=== PATIENT | male | born 2000 | race Caucasian/White ===

== ENCOUNTER 2020-02-21 10:18 | Emergency (ER) | payer BC, SELFPAY ==
[2020-02-21 10:34] VITALS: BP 138/66; PULSE 82; RESP 20; TEMP 37.4; O2SAT 100
--- NOTE | 2020-02-21 10:43 | ED.SKABFB ---
HPI - Skin/Abscess/Foreign Bdy General Chief complaint: Skin/Abscess/Foreign Body Stated complaint: bee sting Time Seen by Provider: 02/21/20 10:44 Source: patient and RN notes reviewed Mode of arrival: ambulatory Limitations: no limitations History of Present Illness HPI narrative: 19-year-old male presents with concern for insect stings. Reports he got stung by a bee on his right upper arm and left upper arm on Tuesday. Reports on Tuesday he took Benadryl 3 times, and has been intermittently using ice. He denies any fever, malaise. Denies any swollen lips, swollen tongue, trouble breathing, trouble swallowing complaint: insect bite/sting Related Data Allergies Allergy/AdvReac Type Severity Reaction Status Date / Time No Known Allergies Allergy Unverified 02/13/14 11:19 Review of Systems Review of Systems: Narrative: CONSTITUTIONAL: Denies malaise, chills, sweats, or fever. EYES: Denies visual changes, redness, or discharge. ENT: Denies swollen lips, swollen tongue CARDIOVASCULAR: Denies chest pain, palpitations, or edema. RESPIRATORY: Denies cough or dyspnea. GASTROINTESTINAL: Denies abdominal pain, nausea, vomiting, diarrhea SKIN: Reports itching, burning areas on right and left arms MUSCULOSKELETAL: Denies myalgia. All systems reviewed & are unremarkable except as noted in HPI and below PMFSH Comments At time of signature, agree with nursing past medical, surgical, social and family history. There is no relevant family history pertinent to the presenting complaint Exam Narrative: Exam Narrative: GENERAL: Well-appearing, well-nourished, and in no acute distress. HEAD: Normocephalic EYES: PERRLA, conjunctivae clear ENT: Nares clear. Mucous membranes moist. Oropharynx without edema, erythema or lesions. Tonsils not enlarged and without exudate. NECK: Supple. CHEST: No respiratory distress. Speaks in full sentences. EXTREMITIES: Bilateral upper extremity grossly normal range of motion, grossly normal strength and sensation. SKIN: Warm, dry. 15 cm x 8 cm patch of erythema, warmth without induration noted to the left inner arm near the elbow. 6 cm right 8 cm area of warmth and erythema without induration noted to the right forearm. No foreign bodies retained in the skin. NEURO: Alert and oriented x3. PSYCH: Normal mood and affect Course Course Emergency Course: Patient is aware of diagnosis, understands and agrees to treatment plan. Anticipatory guidance given. Patient agrees to follow-up as directed and is aware of reasons to seek care at the emergency department. Portions of this record may have been created with voice recognition software Vital Signs Vital signs: Vital Signs Temperature 99.4 F 02/21/20 10:34 Pulse Rate 82 02/21/20 10:34 Respiratory Rate 20 02/21/20 10:34 Blood Pressure 138/66 02/21/20 10:34 Pulse Oximetry 100 02/21/20 10:34 Temperature 99.4 F 02/21/20 10:34 Pulse Rate 82 02/21/20 10:34 Respiratory Rate 20 02/21/20 10:34 Blood Pressure 138/66 02/21/20 10:34 Pulse Oximetry 100 02/21/20 10:34 Reviewed. MDM - Skin/Abscess/Foreign Bdy MDM Narrative Medical decision making narrative: Exam findings show no acute concerns or changes; patient is non-toxic appearing and is in no distress. Patient is appropriate for outpatient treatment and follow-up. Differential Diagnosis Differential diagnosis: Likely abscess of skin or subcutaneous tissue, cellulitis, insect bites, impetigo and contact dermatitis Critical Care Time Critical Care Time Critical Care Time: No Discharge Plan Discharge Clinical Impression: Insect bites Qualifiers: Encounter type: initial encounter Site of insect bite: upper arm Laterality: unspecified laterality Qualified Code(s): S40.869A - Insect bite (nonvenomous) of unspecified upper arm, initial encounter Patient Disposition: Home, Self-Care Condition: Stable Instructions: Insect Bite or Sting (ED) Additional Instru
== END 2020-02-21 11:04 | disposition home or self-care (01) ==
PROVIDERS: Emergency Provider Nurse Practitioner
DX: S40.862A Insect bite (nonvenomous) of left upper arm, initial encounter (principal); S50.861A Insect bite (nonvenomous) of right forearm, initial encounter; W57.XXXA Bitten or stung by nonvenomous insect and other nonvenomous arthropods, initial encounter
CPT/HCPCS: 99213; G0463

== ENCOUNTER 2025-04-19 17:15 | Emergency (ER) | payer OTHER, SELFPAY ==
--- NOTE | ~2025-04-19 | XR_ITS ---
XR knee LT 3V 04/19/2025 17:52 INDICATION: Left knee pain PROCEDURE: 3 views left knee COMPARISON: No prior studies for comparison. FINDINGS: Fracture, dislocation or subluxation is not identified. No significant joint effusion. The soft tissues appear within normal limits. No foreign bodies are identified. IMPRESSION: 1: NO ACUTE BONE OR JOINT ABNORMALITY IDENTIFIED. Reviewed, dictated and finalized at location O. K OFF PERSON
--- OUTSIDE RECORDS SUMMARY | 2025-04-19 17:20 | XMS_ITS | Encounter Summary ---
Author Organization [facility] Address [address] [place] [address] Care Team Providers Care Duty Officer Name Role Phone Patty Gomes [facility] Primary Care Provider + Samira Arthur [facility] Primary Care Provider + Mg Adamson Primary Care Provider [phone] Encounter Details Date Type Department Care Team (Late st Contact Info) Description 10/11/2014 Abstract [facility] Conversion Md, Generic Conversion, Social History Tobacco Use Types Packs/Day Years Used Date Smoking Tobacco: Never Assessed Sex and Gender Information Value Date Recorded Sex Assigned at Not on file Legal Sex Male 8:30 PM CDT Gender Identity Not on file Sexual Orientation Not on file documented as of this encounter Plan of Treatment Not on file documented as of this encounter Visit Diagnoses Not on filedocumented in this encounter Additional Health Concerns Infection Onset Date Last Indicated Resolved Time COVID-19 Rule Out 06/10/2024 06/10/2024 06/10/2024 3:52 PM NEUROSURGERY RESEARCH DIRECTOR COVID-19 Confirmed 06/10/2024 06/10/2024 12:33 AM NEUROSURGERY RESEARCH DIRECTOR documented as of this encounter Care Teams Duty Officer Relationship Specialty Start Date End Date Patty Gomes [facility] PCP - General Nurse Practitioner Family 04/13/19 Samira Arthur [facility] PCP - General Nurse Practitioner Family 04/01/2312/11 [place] [address] [place] [address] PCP - General PHYSICIAN PRINTER FLOOR COVERING ASSISTANT 12/22/24 documented as of this encounter
--- OUTSIDE RECORDS SUMMARY | 2025-04-19 17:20 | XMS_ITS | Clinical Summary ---
Author Organization [facility] Address [address] [place] [address] Care Team Providers Care Solid Waste Analyst Name Role Phone Mg Adamson Primary Care Provider [phone] Allergies No known active allergies Medications ibuprofen (MOTRIN) 200 MG tablet Take 200 mg by mouth every 6 (six) hours as needed for Pain. Active Active Problems Problem Noted Date Diagnosed Date Circulation problem 03/07/2022 Lower back pain 03/07/2022 Stress at home 03/07/2022 Acne, unspecified acne type 02/19/2016 Immunizations Immunization Administration Dates Next Due Dtap (Generic) 04/20/2007, 6,05/17/2001,09/2000 HPV 02/13/2013,12/05/2012 HPV4 (Gardasil) 10/09/2014 Hepatitis A Vaccine - 2 Dose 10/09/2014,12/06/19 13 Hepatitis B 06/26/2002,05/17/2001,02/14/2001 Hib Vaccine, Prp-Omp 06/26/2002,05/17/2001,02/14 MENINGOCOCCAL A C Y&W-135 oligosaccharide (MENVEO) 12/05/2012 MMR (Generic) 04/20/2007,01/18/2006 Menactra 11/22/2017 Polio Ipv (Generic) 02/13/2013, 6,05/17/2001,09/2000 Tdap (Generic) 12/28/2021,12/05/2012 Varicella Vaccine 03/13/2008,06/26/2002 Family History Medical History Relation Comments Arthritis Father Relation Status Comments Father Alive Mother Alive Social History Tobacco Use Types Packs/Day Years Used Date Smoking Tobacco: Never Smokeless Tobacco: Never Tobacco Cessation:Counseling Given: No Comments:na Alcohol Use Standard Drinks/Week Comments No 0 (1 standard drink = 0.6 oz pur e alcohol) AUDIT-C Answer Date Recorded Frequency of Alcohol Consumption Never 04/13/2019 Average Number of Drinks Not on file 019 Frequency of Binge Drinking Not on file 06/2018 PHQ-2 Answer Date Recorded PHQ-2 Score - If the patient scores above 3, please move on to questions 3-9 1 03/01/2022 Sex and Gender Information Value Date Recorded Sex Assigned at Not on file Legal Sex Male 8:30 PM CDT Gender Identity Not on file Sexual Orientation Not on file Last Filed Vital Signs Vital Sign Reading Time Taken Comments Blood Pressure 128/89 06/10/2024 4:18 PM HARDENING MACHINE OPERATOR Pulse 93 06/10/2024 4:18 PM HARDENING MACHINE OPERATOR Temperature 36.7 C (98 F) 06/10/2024 4:18 PM HARDENING MACHINE OPERATOR Respiratory Rate 15 06/10/2024 4:18 PM HARDENING MACHINE OPERATOR Oxygen Saturation 100% 06/10/2024 4:18 PM HARDENING MACHINE OPERATOR Inhaled Oxygen Concentration - - Weight 65.6 kg (144 lb 10 oz) 06/10/2024 3:01 PM HARDENING MACHINE OPERATOR Height 167.6 cm (5' 6) 06/10/2024 3:01 PM HARDENING MACHINE OPERATOR Body Mass Index 23.34 06/10/2024 3:01 PM HARDENING MACHINE OPERATOR Plan of Treatment Health Maintenance Due Date Last Done Comments Annual Physical 09/25/2003 Hepatitis C 2018 PHQ-2 (Physician [place]) 06/13/2024 COVID-19 Vaccine ( season) 2025 Influenza Adult (#1) 2025 DTaP, Tdap and Td Vaccines (7 - Td or Tdap) 12/29/2031 12/28/2021, 12/05/2012, 04/20/2007, Additional history exists Hepatitis B Vaccines Completed 06/26/2002, 05/17/2001, 02/14/2001 HPV Vaccines Completed 10/09/2014, 08/2012, 12/05/2012 Hepatitis A Vaccines Completed 10/09/2014, 12/06/19 13 Meningococcal Vaccine Completed 11/22/2017, 06/25/2 013 Meningococcal B Vaccine Aged Out No l onger eligible based on patient's age to complete this topic Pneumococcal Vaccine: Pediatrics (0 to 5 Years) and At-Risk Patients (6 to 49 Years) Aged Out No longer eligible based on patient's age to complete this topic RSV Immunizations Under 20 Months Aged Out No longer eligible based on patient's age to complete this topic Insurance [facility] Care Teams Solid Waste Analyst Relationship Special[place] [address] [place] [address] PCP - General PHYSICIAN WAITER/WAITRESS ECONOMY CLASS 12/22/24
--- OUTSIDE RECORDS SUMMARY | 2025-04-19 17:20 | XMS_ITS | Encounter Summary ---
Author Organization [facility] Address [address] [place] [address] Care Team Providers Care Technician Inventory Specialist Name Role Phone Patty Gomes [facility] Primary Care Provider + Samira Arthur [facility] Primary Care Provider + Mg Adamson Primary Care Provider [phone] Encounter Details Date Type Department Care Team (Late st Contact Info) Description 03/08/2022 [place] [employer] Message Enc [facility] Medical Group Family & Internal Medicine [facility] [id number] [place] [phone] [place]elly Sween[place] [id number] [place] [phone] KNEE WO CON Social History Tobacco Use Types Packs/Day Years Used Date Smoking Tobacco: Never Smokeless Tobacco: Never Alcohol Use Standard Drinks/Week Comments No 0 [...] on file Sexual Orientation Not on file COVID-19 Exposure Response Date Recorded In the last 10 days, have yo u been in contact with someone who was confirmed or suspected to have Coronavirus/COVID-19? No / Unsure 03/11/2022 7:52 AM CDT documented as of this encounter Plan of Treatment Not on file documented as of this encounter Visit Diagnoses Not on filedocumented in this encounter Additional Health Concerns Infection Onset Date Last Indicated Resolved Time COVID-19 Rule Out 06/10/2024 06/10/2024 06/10/2024 3:52 PM ELECTRICIAN MAINTENANCE COVID-19 Confirmed 06/10/2024 06/10/2024 12:33 AM ELECTRICIAN MAINTENANCE documented as of this encounter Care Teams Technician Inventory Specialist Relationship Specialty Start Date End Date Patty Gomes [facility] PCP - General Nurse Practitioner Family 04/13/19 Samira Arthur [facility] PCP - General Nurse Practitioner Family 04/01/2312/11 [place] [address] [place] [address] PCP - General PHYSICIAN FURNACE PROCESS PLANT OPERATOR 12/22/24 documented as of this encounter
--- OUTSIDE RECORDS SUMMARY | 2025-04-19 17:21 | XMS_ITS | Encounter Summary ---
Author Organization [facility] Address [address] [place] [address] Care Team Providers Care Size Painter Name Role Phone Patty Gomes [facility] Primary Care Provider + Samira Arthur [facility] Primary Care Provider + Mg Adamson Primary Care Provider [phone] Encounter Details Date Type Department Care Team (Late st Contact Info) Description 12/07/2012 Abstract [facility] Conversion Md, Generic Conversion, Social History [...] Rule Out 06/10/2024 06/10/2024 06/10/2024 3:52 PM ISOTOPE TECHNOLOGIST COVID-19 Confirmed 06/10/2024 06/10/2024 12:33 AM ISOTOPE TECHNOLOGIST documented as of this encounter Care Teams Size Painter Relationship Specialty Start Date End Date Patty Gomes [facility] PCP - General Nurse Practitioner Family 04/13/[address] [facility] PCP - General Nurse Practitioner Family 04/01/2312/11 [place] [address] [place] [address] PCP - General PHYSICIAN BRASS FINISHER 12/22/24 documented as of this encounter
--- OUTSIDE RECORDS SUMMARY | 2025-04-19 17:21 | XMS_ITS | Encounter Summary ---
Author Organization [facility] Address [address] [place] [address] Care Team Providers Care Patient Svcs Mgr Name Role Phone Patty Gomes [facility] Primary Care Provider + Samira Arthur [facility] Primary Care Provider + Mg Adamson Primary Care Provider [phone] Encounter Details Date Type Department Care Team (Late st Contact Info) Description 03/08/2022 [employer] Message Enc [facility] Medical Group Family & Internal Medicine [facility] [id number] [place] [phone] Nelly Sween[place] [id number] [place] [phone] KNEE WO CON [...] AM CDT documented as of this encounter Progress Notes * Erica Chester RN - 03/09/2022 12:32 PM CDT Bo[place] message- Last read by Rainer Norris at 8:24 AM on 03/09/2022. documented in this encounter Plan of Treatment Not on file documented as of this encounter Visit Diagnoses Not on filedocumented in this encounter Additional Health Concerns Infection Onset Date Last Indicated Resolved Time COVID-19 Rule Out 06/10/2024 06/10/2024 06/10/2024 3:52 PM FOAMITE MIXER COVID-19 Confirmed 06/10/2024 06/10/2024 12:33 AM FOAMITE MIXER documented as of this encounter Care Teams Patient Svcs Mgr Relationship Specialty Start Date End Date Patty Gomes [facility] PCP - General Nurse Practitioner Family 04/13/19 Samira Arthur [facility] PCP - General Nurse Practitioner Family 04/01/2312/11 [place] [address] [place] [address] PCP - General PHYSICIAN AIR QUALITY INSTRUMENT SPECIALIST 12/22/24 documented as of this encounter
[2025-04-19 17:32] VITALS: BP 139/79; PULSE 83; RESP 16; TEMP 36.9; O2SAT 100
--- NOTE | 2025-04-19 17:39 | ED.LOWEXIN ---
HPI - Extremity Injury (Lower) General Chief Complaint: Extremity Injury, Lower Stated Complaint: L Knee Source: patient Mode of arrival: ambulatory Limitations: no limitations History of Present Illness HPI Narrative: This is a 24-year-old male patient who presents to the urgent care with complaints of left lateral knee pain. Patient states while he was at work on Tuesday he was walking toward someone with his knee popped and kind of buckled. Patient reports that he did not fall, he did some some tenderness in the lateral knee. patient has been taking ibuprofen for the pain with some relief. he reports at worst pain is a 10 but at rest it is a 4-6. Patient denies any other injury. no distress. he has been able to ambulate and work since. Patient denies any numbness or tingling MD complaint: knee injury Onset (ago): hour(s) (5) Injury: Left: knee Type of Injury: hyperflexion Place: work Severity: mild Severity scale (1-10): 4 Relieving factors: NSAID Exacerbating factors: movement Context: walking Other symptoms: none Related Data Allergies Allergy/AdvReac Type Severity Reaction Status Date / Time No Known Allergies Allergy Verified 04/19/25 17:32 Course Course Emergency Course: This is a 24-year-old male patient who presents to the urgent care with complaints of left lateral knee pain. Patient states while he was at work on Tuesday he was walking toward someone with his knee popped and kind of buckled. Patient reports that he did not fall, he did some some tenderness in the lateral knee. patient has been taking ibuprofen for the pain with some relief. he reports at worst pain is a 10 but at rest it is a 4-6. Patient denies any other injury. no distress. he has been able to ambulate and work since. Patient denies any numbness or tingling Level of Care: Express Care Visit Vital Signs Vital signs: Vital Signs Temperature 98.5 F 04/19/25 17:32 Pulse Rate 83 04/19/25 17:32 Respiratory Rate 16 04/19/25 17:32 Blood Pressure 139/79 04/19/25 17:32 Pulse Oximetry 100 04/19/25 17:32 Oxygen Delivery Room Air 04/19/25 17:32 Temperature 98.5 F 04/19/25 17:32 Pulse Rate 83 04/19/25 17:32 Respiratory Rate 16 04/19/25 17:32 Blood Pressure 139/79 04/19/25 17:32 Pulse Oximetry 100 04/19/25 17:32 Oxygen Delivery Room Air 04/19/25 17:32 MDM - Extremity Injury (Lower) MDM Narrative Medical decision making narrative: This is a 24-year-old male patient who presents to the urgent care with complaints of left lateral knee pain. Patient states while he was at work on Tuesday he was walking toward someone with his knee popped and kind of buckled. Patient reports that he did not fall, he did some some tenderness in the lateral knee. patient has been taking ibuprofen for the pain with some relief. he reports at worst pain is a 10 but at rest it is a 4-6. Patient denies any other injury. no distress. he has been able to ambulate and work since. Patient denies any numbness or tingling. x-rays of the left knee were ordered noted NO ACUTE BONE OR JOINT ABNORMALITY IDENTIFIED. educated patient, discussed treatment options, and follow-up. Continue with ibuprofen 600 mg 3 times a day with food to reduce GI upset. WADE wrap for compression. Ice to the area for 20 minutes, off one hour. elevated often and no strenuous activity If he gets this after Tuesday follow-up with primary care provider for referral to Orthopedics return to the emergency department urgent care with any recent signs or symptoms Differential Diagnosis Differential diagnosis: Likely acute internal derangement of knee and other (left knee strain, left knee effusion) Medical Records Attestation: I reviewed the patient's medical records. Imaging Data Attestation: I personally reviewed and interpreted this imaging study as follows: Radiologist's impression: Patient: Rainer Norris : 2000 MR#: [id number] Age: 24 Acct:[id number] Loc: [facility] ADM Date: 04/19/[address]: Ordering Physician: Sue Cartagena APRN Date of Service: 04/19/25 Procedure(s): XR knee LT 3V Accession Number(s): [id number] cc: Sue Cartagena APRN; UNKNOWN,DOCTOR~ XR knee LT 3V 04/19/2025 17:52 INDICATION: Left knee pain PROCEDURE: 3 views left knee COMPARISON: No prior studies for comparison. FINDINGS: Fracture, dislocation or subluxation is not identified. No significant joint effusion. The soft tissues appear within normal limits. No foreign bodies are identified. IMPRESSION: 1: NO ACUTE BONE OR JOINT ABNORMALITY IDENTIFIED. Discharge Plan Discharge Clinical Impression: Left knee sprain Patient Disposition: Home Condition: Stable Instructions: Knee Sprain (ED) Additional Instructions: Continue with ibuprofen 600 mg 3 times a day with food to reduce GI upset. WADE wrap for compression. Ice to the area for 20 minutes, off one hour. elevated often and no strenuous activity If he gets this after Tuesday follow-up with primary care provider for referral to Orthopedics return to the emergency department urgent care with any recent signs or symptoms Patient Language: [place]ican Prescriptions: New ibuprofen 600 mg tablet 600 mg PO TID Qty: 12 0RF Follow-up/Referrals: UNKNOWN,DOCTOR [Primary Care Provider] Stand Alone Forms: Work/School Release IP Time of Disposition: 18:18
== END 2025-04-19 18:23 | disposition home or self-care (01) ==
PROVIDERS: Emergency Provider Nurse Practitioner Family
DX: S83.92XA Sprain of unspecified site of left knee, initial encounter (principal); X58.XXXA Exposure to other specified factors, initial encounter
CPT/HCPCS: 73562; 99213; G0463